=== PATIENT | female | born 1995 | race Two or more races ===

== ENCOUNTER 2022-03-05 05:36 | Inpatient (IN) ==
[2022-03-05] MEDS ORDERED: CITRIC ACID/SODIUM CITRATE 30 ML UDCUP PO ONE (05:44)
[2022-03-05] MEDS ORDERED: miSOPROStoL 200 MCG TABLET RECTAL PRN (05:44)
[2022-03-05] MEDS ORDERED: CARBOPROST TROMETHAMINE 250 MCG/ML AMP IM PRN (05:44)
[2022-03-05] MEDS ORDERED: OXYTOCIN/LR 20 UNIT/1,000 ML BAG IV ONE ×3 (05:44→19:00)
[2022-03-05] MEDS ORDERED: METHYLERGONOVINE 0.2 MG/1 ML AMP IM PRN (05:44)
[2022-03-05] MEDS ORDERED: TRANEXAMIC ACID 1,000 MG in SODIUM CHLORIDE 0.9% 100 ML IV PRN (05:44)
[2022-03-05] MEDS ORDERED: FAMOTIDINE 20 MG/2 ML VIAL IV ONE (05:44)
[2022-03-05] MEDS ORDERED: LACTATED RINGERS 1,000 ML IV ONE ×2 (05:47→07:59)
[2022-03-05] MEDS ORDERED: LACTATED RINGERS 1,000 ML IV SCH ×2 (06:00)
[2022-03-05 06:10] LABS: Basophils % 0.3 % (0.0-0.8); Eosinophils # 0.1 10*3/uL (0.0-0.87); Eosinophils % 1.2 % (0.00-10.9); Hematocrit 31.8 VOL% (35.7-47.0); Hemoglobin 10.1 GM/DL (12.0-16.0); Immature Granulocytes % 0.3 %; Immature Granulocytes Absolute 0.02 #; Lymphocytes % 40.6 % (21.3-54.2); Mean Corpuscular HGB Conc 31.8 GM/DL (32-36); Mean Corpuscular Volume 81.7 FL (87-102); Mean Platelet Volume 11.8 FL (9.6-12.0); Monocytes # 0.7 10*3/uL (0.11-0.8); Monocytes % 8.7 % (1.7-12.7); Neutrophils % 48.9 % (38.7-73.9); Platelet Count 127 T/CUMM (130-400); Red Blood Count 3.89 MC/CUMM (3.8-5.5); Red Cell Distribution Width 15.9 % (9.3-17.3); White Blood Count 7.5 T/CUMM (4-12)
[2022-03-05 06:29] LABS: Alanine Aminotransferase 32 U/L (13-56); Albumin 2.6 G/DL (3.4-5.0); Alkaline Phosphatase 189 U/L (45-117); Aspartate Amino Transferase 21 U/L (0-37); Bilirubin,Total < 0.39 MG/DL (0.20-1.00); Blood Urea Nitrogen 13 MG/DL (7-18); Calcium 9.1 MG/DL (8.5-10.1); Carbon Dioxide 20 MMOL/L (21-32); Chloride 111 MMOL/L (98-107); Glucose 81 MG/DL (74-106); Osmolality,Calculated 271.8 MOS/KG (273-304); Potassium 4.1 MMOL/L (3.5-5.1); Sodium 137 MMOL/L (136-145); Total Protein 6.3 G/DL (6.4-8.2)
[2022-03-05] MEDS ORDERED: buprenorphine HCL 0.3 MG/ML VIAL ONE (06:35)
[2022-03-05] MEDS ORDERED: ONDANSETRON 4 MG/2 ML VIAL ONE ×2 (06:35→19:25)
[2022-03-05] MEDS ORDERED: KETOROLAC 30 MG/1 ML VIAL ONE (06:35)
[2022-03-05] MEDS ORDERED: ACETAMINOPHEN INJ 1,000 MG/100 ML VIAL IV ONE (06:35)
[2022-03-05] MEDS ORDERED: BUPIVACAINE SPINAL 0.75% 2 ML AMP SPINAL ONE (06:35)
[2022-03-05] MEDS ORDERED: DEXAMETHASONE 4 MG/1 ML VIAL ONE (06:36)
[2022-03-05] MEDS ORDERED: miSOPROStoL 200 MCG TABLET ONE (07:00)
[2022-03-05] MEDS ORDERED: TRANEXAMIC ACID 1,000 MG/10 ML VIAL ONE (07:00)
[2022-03-05] MEDS ORDERED: METHYLERGONOVINE 0.2 MG/1 ML AMP ONE (07:00)
[2022-03-05] MEDS ORDERED: SODIUM CHLORIDE 0.9% 0 ML IV ONE (07:00)
[2022-03-05] MEDS ORDERED: CARBOPROST TROMETHAMINE 250 MCG/ML AMP IM ONE (07:01)
[2022-03-05] MEDS: ceFAZolin 2,000 MG/50 ML DUPLEX IV PRN ×2 (07:06→15:52)
[2022-03-05] MEDS ORDERED: PHENYLEPHRINE 1 MG/10 ML SYRINGE IV ONE (07:59)
[2022-03-05 08:37] LABS: Cord Venous Blood HCO3 21.4 MMOL/L; Cord Venous Blood PCO2 44.1 MMHG; Cord Venous Blood PO2 33.5
[2022-03-05 08:44] LABS: Bacteria,Urine Occasional /HPF (Few); Mucus,Urine Occasional /LPF (Occasional); RBC,Urine 1 /HPF (0-4); Squamous Epithelial Cell,Urine Occasional /HPF (0-10)
[2022-03-05 08:45] LABS: Glucose,Urine (UA) Negative (Negative); Ketones,Urine Negative (Negative); Protein,Urine 30 mg/dL (Negative); Urine Appearance Clear (Clear); Urine Color Yellow (Yellow); Urine pH 5.5 (4.5-8.0)
[2022-03-05 08:46] LABS: Bilirubin,Urine Negative (Negative); Blood, Urine Negative (Negative); Nitrite,Urine Negative (Negative); Urine Urobilinogen 0.2 eU/dL (<2.0)
[2022-03-05] MEDS: HYDROmorphone 1 MG/1 ML SYRINGE IV PRN ×2 (10:40→19:08)
[2022-03-05] MEDS: ACETAMINOPHEN 500 MG TABLET PO SCH (14:28)
[2022-03-05] MEDS: KETOROLAC 30 MG/1 ML VIAL IV SCH (14:28)
[2022-03-05] MEDS ORDERED: miSOPROStoL 200 MCG TABLET PO ONE (19:00)
[2022-03-05 19:22] LABS: Hematocrit 29.2 VOL% (35.7-47.0); Hemoglobin 9.5 GM/DL (12.0-16.0)
[2022-03-05] MEDS ORDERED: ONDANSETRON 4 MG/2 ML VIAL IV PRN (19:25)
[2022-03-05] MEDS: DOCUSATE SODIUM 100 MG CAPSULE PO SCH (21:27)
[2022-03-05] MEDS: miSOPROStoL 200 MCG TABLET PO SCH (23:03)
[2022-03-05] MEDS: oxyCODONE/ACETAMINOPHEN 5-325 MG TABLET PO PRN (23:21)
[2022-03-06] MEDS: ACETAMINOPHEN 500 MG TABLET PO SCH ×2 (00:43→04:10)
[2022-03-06] MEDS: oxyCODONE/ACETAMINOPHEN 5-325 MG TABLET PO PRN ×3 (03:52→20:52)
[2022-03-06] MEDS: SIMETHICONE CHEW 80 MG TABLET PO PRN ×2 (03:56→08:20)
[2022-03-06] MEDS ORDERED: BISACODYL 10 MG SUPP RECTAL PRN (04:18)
[2022-03-06] MEDS ORDERED: MAGNESIUM HYDROXIDE SUSP 30 ML UDCUP PO PRN (04:18)
[2022-03-06] MEDS: miSOPROStoL 200 MCG TABLET PO SCH ×3 (04:44→12:13)
[2022-03-06] MEDS: KETOROLAC 30 MG/1 ML VIAL IV SCH (04:44)
[2022-03-06 05:02] LABS: Basophils % 0.3 % (0.0-0.8); Eosinophils % 0.3 % (0.00-10.9); Hematocrit 25.5 VOL% (35.7-47.0); Hemoglobin 8.1 GM/DL (12.0-16.0); Immature Granulocytes % 0.3 %; Immature Granulocytes Absolute 0.03 #; Lymphocytes # 2.9 10*3/uL (1.4-4.0); Lymphocytes % 25.6 % (21.3-54.2); Mean Corpuscular HGB Conc 31.8 GM/DL (32-36); Mean Corpuscular Volume 82.3 FL (87-102); Mean Platelet Volume 12.6 FL (9.6-12.0); Monocytes # 0.9 10*3/uL (0.11-0.8); Monocytes % 7.6 % (1.7-12.7); Neutrophils % 65.9 % (38.7-73.9); Platelet Count 116 T/CUMM (130-400); Red Cell Distribution Width 15.7 % (9.3-17.3); White Blood Count 11.4 T/CUMM (4-12)
[2022-03-06] MEDS: FERROUS SULFATE 325 MG TABLET PO SCH ×2 (08:20→20:52)
[2022-03-06] MEDS: DOCUSATE SODIUM 100 MG CAPSULE PO SCH ×2 (08:21→20:52)
[2022-03-06] MEDS: IBUPROFEN 800 MG TABLET PO PRN ×2 (08:21→20:53)
[2022-03-06 12:57] LABS: Basophils % 0.3 % (0.0-0.8); Eosinophils # 0.1 10*3/uL (0.0-0.87); Eosinophils % 0.6 % (0.00-10.9); Hematocrit 25.4 VOL% (35.7-47.0); Immature Granulocytes % 0.4 %; Immature Granulocytes Absolute 0.04 #; Lymphocytes # 3.1 10*3/uL (1.4-4.0); Lymphocytes % 27.4 % (21.3-54.2); Mean Corpuscular HGB Conc 31.5 GM/DL (32-36); Mean Corpuscular Volume 81.9 FL (87-102); Mean Platelet Volume 12.3 FL (9.6-12.0); Monocytes # 0.9 10*3/uL (0.11-0.8); Monocytes % 7.6 % (1.7-12.7); Neutrophils % 63.7 % (38.7-73.9); Platelet Count 121 T/CUMM (130-400); White Blood Count 11.3 T/CUMM (4-12)
[2022-03-06] MEDS ORDERED: MAGNESIUM CITRATE 300 ML BOTTLE PO ONE (18:30)
[2022-03-07 07:38] VITALS: BP 127/78
[2022-03-07] MEDS: FERROUS SULFATE 325 MG TABLET PO SCH (08:54)
[2022-03-07] MEDS: DOCUSATE SODIUM 100 MG CAPSULE PO SCH (08:54)
[2022-03-07] MEDS: SIMETHICONE CHEW 80 MG TABLET PO PRN (08:54)
[2022-03-07] MEDS: IBUPROFEN 800 MG TABLET PO PRN (08:59)
== END 2022-03-07 13:25 | disposition home or self-care (01) | DRG 788 ==
LOC: N.LD 05:36 → N.OB 12:03
PROVIDERS: ADMIT Obstetrics & Gynecology; ATTEND Obstetrics & Gynecology
PROC: LDCSECT (ICD-10-PCS; 2022-03-05 07:45)